=== PATIENT | female | born 1985 | race African-American/Black ===

== ENCOUNTER 2018-01-03 13:39 | Emergency (ER) | payer SELFPAY ==
[~2018-01-03] VITALS: Ht 154.9 cm; Wt 78.0 kg
[2018-01-03 13:40] VITALS: Ht 154.9 cm; Wt 78.0 kg
[2018-01-03 16:37] LABS: UA SPECIFIC GRAVITY >=1.030 (1.005-1.035); microscopic required? YES; urine erythrocyte NEGATIVE (NEGATIVE)
[2018-01-03 16:39] LABS: BASOPHIL % 0.2 % (0-2); PLATELET COUNT 283 x10^3mcL (130-400)
[2018-01-03 16:40] LABS: RED CELL DISTRIBUTION WIDTH 16.3 % (11.5-14.5)
[2018-01-03 17:20] VITALS: BP 132/54
== END 2018-01-03 17:20 | disposition home or self-care (01) ==
LOC: ED 13:39
PROVIDERS: Emergency Medicine
DX: F20.9 Schizophrenia, unspecified (principal); F22 Delusional disorders; G89.29 Other chronic pain; M54.9 Dorsalgia, unspecified; Z88.0 Allergy status to penicillin; Z88.6 Allergy status to analgesic agent
CPT/HCPCS: 36415

== ENCOUNTER 2018-02-05 20:24 | Emergency (ER) | payer SELFPAY ==
[2018-02-05 21:08] LABS: BASOPHIL % 0.3 % (0-2); PLATELET COUNT 312 x10^3mcL (130-400)
[2018-02-05 21:14] LABS: RED CELL DISTRIBUTION WIDTH 15.7 % (11.5-14.5)
[2018-02-05 22:01] LABS: CALCIUM 9.2 mg/dL (8.5-10.1); CARBON DIOXIDE 19.9 mmol/L (21-32); CHLORIDE SERUM 102 mmol/L (98-107); GFR1 > 60 mL/min; GLUCOSE SERUM 98 mg/dL (74-106); POTASSIUM SERUM 3.4 mmol/L (3.5-5.1); SODIUM SERUM 137 mmol/L (136-145)
[2018-02-05 22:06] LABS: AMPHETAMINE QUAL UR POSITIVE (See below)
[2018-02-05 22:06] LABS: ALKALINE PHOSPHATASE 61 U/L (46-116); ALT/SGPT 21 U/L (14-59); AST/SGOT 20 U/L (15-37); BILIRUBIN TOTAL 0.6 mg/dL (0.20-1.00); TOTAL PROTEIN, SERUM 8.1 g/dL (6.4-8.2)
[2018-02-06 05:44] VITALS: BP 126/76
== END 2018-02-06 06:15 | disposition left against medical advice (07) ==
LOC: ED 20:24
PROVIDERS: Emergency Medicine
DX: F23 Brief psychotic disorder (principal); F15.10 Other stimulant abuse, uncomplicated; F12.10 Cannabis abuse, uncomplicated
CPT/HCPCS: 36415; G0480